=== PATIENT | female | born 1980 | race Hispanic/Latino ===

== ENCOUNTER → 2018-01-30 | Outpatient (CLI) | payer OTHER | END | disposition home or self-care (01) | LOC: RAH 08:48 | PROVIDERS: ATTEND Physician Assistant Medical | DX: N63.42 Unspecified lump in left breast, subareolar (principal); N64.3 Galactorrhea not associated with childbirth | CPT/HCPCS: 76641; 77066 ==

== ENCOUNTER → 2018-02-16 | Outpatient (CLI) | payer OTHER ==
[~2018-02-16] MED LIST: LIDOCAINE 1%-EPI 1:100,000 20 ML VIAL IJ ONE
[2018-02-16 08:45] LABS: INR 0.98 (0.85-1.15); PARTIAL THROMBOPLASTIN TIME 26.7 SEC (26.3-35.5); PROTHROMBIN TIME 10.3 SEC (9.6-11.6)
== END | disposition home or self-care (01) ==
LOC: RAH 07:53
DX: D24.2 Benign neoplasm of left breast (principal); N63.0 Unspecified lump in unspecified breast; Z79.01 Long term (current) use of anticoagulants; I26.99 Other pulmonary embolism without acute cor pulmonale; N63.42 Unspecified lump in left breast, subareolar
CPT/HCPCS: 19083; 36415; 77065; 85610; 85730; 88305; J3490

== ENCOUNTER 2018-03-26 06:50 | Day surgery (SDC) | payer OTHER ==
[2018-03-23 08:58] LABS: BASOPHILS % (AUTO) 0.4 % (0.0-5.0); EOSINOPHILS % (AUTO) 1.1 % (0.0-8.0); HEMATOCRIT 39.1 % (36-48); LYMPHOCYTES % (AUTO) 24.2 % (21.0-51.0); MEAN CORPUSCULAR HEMOGLOBIN 30.7 pg (27.0-33.0); MEAN CORPUSCULAR HGB CONC 34.1 g/dL (32.0-36.0); MEAN CORPUSCULAR VOLUME 90.1 fL (79-99); MONOCYTES % (AUTO) 7.3 % (3.0-13.0); PLATELET COUNT (AUTO) 249 K/uL (130-400); RED BLOOD CELL COUNT(AUTO) 4.34 MIL/uL (4.00-5.50); RED CELL DISTRIBUTION WIDTH 12.7 % (11.0-15.5); WHITE BLOOD COUNT (AUTO) 5.4 K/uL (4.8-10.8)
[2018-03-23 09:07] VITALS: BP 108/71
[2018-03-23 09:12] LABS: ALBUMIN 3.8 g/dL (3.5-5.0); BILIRUBIN,TOTAL 0.4 mg/dL (0.2-1.0); CREATININE 0.7 mg/dL (0.5-1.5); POTASSIUM 4.3 mmol/L (3.5-5.1)
[2018-03-26] VITALS (14 sets, daily range): BP systolic 86–112; BP diastolic 41–71
[~2018-03-26] VITALS: Ht 167.6 cm; Wt 68.3 kg
[2018-03-26] MEDS: CEFAZOLIN SODIUM 1 GM VIAL IVP SCH ×2 (07:30→08:40)
[2018-03-26] MEDS ORDERED: LACTATED RINGERS 1000ML 1,000 ML IV ONE (07:46)
[2018-03-26] MEDS ORDERED: FENTANYL CITRATE PF 50 MCG/1 ML 2ML VIAL ONE ×2 (08:36→09:26)
[2018-03-26] MEDS ORDERED: MIDAZOLAM HCL 1 MG/ML 2ML VIAL ONE (08:36)
[2018-03-26] MEDS ORDERED: PROPOFOL 10 MG/ML 20ML VIAL IV ONE (08:40)
[2018-03-26] MEDS ORDERED: MEPERIDINE-PF 25 MG/ML SYG ONE ×2 (10:10→10:18)
== END 2018-03-26 11:42 | disposition home or self-care (01) ==
LOC: DAH 06:50
PROVIDERS: ATTEND Student in an Organized Health Care Education/Training Program
DX: D24.2 Benign neoplasm of left breast (principal)
CPT/HCPCS: 19120; 19285; 36415; 76098; 76998; 80053; 84703; 85025; 88305; A4218; A4450; A4606; J0690; J2175 ×2; J2250; J2704; J3010 ×2; J7120